=== PATIENT | male | born 1945 | race Caucasian/White ===

== ENCOUNTER 2020-12-03 11:08 | Emergency (ER) | payer BC, OTHER ==
[2020-12-03 12:11] VITALS: BP 154/69; PULSE 72; TEMP 98.4; BMI 25.4
[2020-12-03] MEDS ORDERED: FLUORESCEIN NA 1 EA STRIP ONE (13:11)
[2020-12-03] MEDS ORDERED: TETRACAINE 0.5% OPHTH SOLN 2 ML BOTTLE ONE (13:11)
[2020-12-03] MEDS ORDERED: ACETAMINOPHEN 500 MG TABLET (FP) ONE (13:20)
[2020-12-03] MEDS ORDERED: ACETAMINOPHEN 500 MG TABLET (FP) PO ONE (13:20)
[2020-12-03] MEDS ORDERED: valACYclovir HCL 1000 MG TABLET PO ONE (13:27)
[2020-12-03] MEDS ORDERED: valACYclovir HCL 500 MG TABLET (FP) ONE (13:30)
== END 2020-12-03 15:23 | disposition home or self-care (01) ==
LOC: JER 11:08
DX: B02.39 Other herpes zoster eye disease (principal)
CPT/HCPCS: 99284-25; C9803; U0003; U0005